=== PATIENT | male | born 1980 | race Caucasian/White ===

== ENCOUNTER 2020-02-08 23:02 | Emergency (ER) | payer SELFPAY ==
[2015-06-18 09:35] VITALS: BP 143/85
[2020-02-09] MEDS ORDERED: ORPH100T PO (17:04)
[2020-02-09] MEDS ORDERED: ONDA4TAB12 PO (17:04)
[2020-02-09] MEDS ORDERED: TRAM50TA PO (17:04)
== END 2020-02-09 00:29 | disposition left against medical advice (07) ==
LOC: ER 23:02
DX: M79.622 Pain in left upper arm (principal); M79.621 Pain in right upper arm; Z53.21 Procedure and treatment not carried out due to patient leaving prior to being seen by health care provider

== ENCOUNTER 2020-02-09 15:06 | Emergency (ER) | payer SELFPAY ==
[~2020-02-09] VITALS: Ht 180.3 cm; Wt 72.7 kg
[2020-02-09] MEDS ORDERED: ORPHENADRINE CITRATE 60 MG/2 ML VIAL. IM ONE (16:00)
[2020-02-09] MEDS ORDERED: HYDROcodone/APAP 5/325MG 1 TAB TABLET PO ONE (16:00)
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
[2020-02-09] MEDS ORDERED: DIPH,PERTUSS(ACELL),TET VAC/PF 0.5 ML SYRINGE. VAX IM ONE (17:00)
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
[2020-02-09] MEDS ORDERED: TRAM50TA PO (17:04)
[2020-02-09] MEDS ORDERED: ONDA4TAB12 PO (17:04)
[2020-02-09] MEDS ORDERED: ORPH100T PO (17:04)
[2020-02-09 17:16] VITALS: BP 123/83
== END 2020-02-09 17:40 | disposition home or self-care (01) ==
LOC: ER 15:06
DX: S42.001A Fracture of unspecified part of right clavicle, initial encounter for closed fracture (principal); F17.200 Nicotine dependence, unspecified, uncomplicated; V29.9XXA Motorcycle rider (driver) (passenger) injured in unspecified traffic accident, initial encounter; Y92.488 Other paved roadways as the place of occurrence of the external cause; Y93.89 Activity, other specified; Y99.8 Other external cause status
CPT/HCPCS: 29105; 70450; 71111; 72125; 73000; 73030; 73060; 90471; 90715; 96372; 99285; J2360

== ENCOUNTER 2020-12-11 05:40 | Emergency (ER) | payer SELFPAY ==
[~2020-12-11] VITALS: Ht 180.3 cm; Wt 72.0 kg
[~2020-12-11 05:40] MED LIST: ONDA4TAB12 PO; ORPH100T PO; TRAM50TA PO
[2020-12-11 05:45] VITALS: BP 149/94
--- NOTE | 2020-12-11 06:17 | RAD ---
Two-view chest dated 12/11/2020. No comparison available. CLINICAL INDICATION: Foreign body sensation. FINDINGS: PA and lateral views obtained. Heart and mediastinal contours within normal limits. Lungs are somewha t hyperinflated but otherwise clear. No consolidation or pleural effusion. No pneumothorax. No radiop aque foreign body. IMPRESSION: No acute radiographic abnormality. Electronically signed by: Levi Arnold MD (12/11/2020 6:15 AM) CHEMA
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
[2020-12-11] MEDS ORDERED: IV NORMAL SALINE 1000ML BAG 1,000 ML IV ONE (06:30)
[2020-12-11] MEDS ORDERED: ONDANSETRON PF 4 MG/2 ML VIAL. IVP ONE (06:30)
--- NOTE | 2020-12-11 19:26 | EKG ---
[facility] [address] [place] [address] Test Date: 2020-12-11 Test Time: 05:52:10 Pat Name: CHANDAN MIMS Department: Room: Gender: M Senior Analyst Programmer: : 1980 Requested By: ENID BRO Order Number: [id number] Reading MD: Measurements Intervals [place] Rate: 83 P: 52 ME: 176 QRS: 54 QRSD: 84 T: 43 QT: 340 QTc: 400 Interpretive Statements SINUS RHYTHM LEFT ATRIAL ABNORMALITY INCOMPLETE RIGHT BUNDLE BRANCH BLOCK ABNORMAL ECG RI6.02 No previous ECG available for comparison
== END 2020-12-11 06:08 | disposition left against medical advice (07) ==
LOC: ER 05:40
DX: R09.89 Other specified symptoms and signs involving the circulatory and respiratory systems (principal); F17.200 Nicotine dependence, unspecified, uncomplicated; Z53.21 Procedure and treatment not carried out due to patient leaving prior to being seen by health care provider
CPT/HCPCS: 71046; 93005